=== PATIENT | female | born 1940 | race Caucasian/White ===

== ENCOUNTER 2016-12-29 18:51 | Emergency (ER) | payer MEDICARE, BC ==
[2016-12-29 19:01] VITALS: TEMP 97.3
[2016-12-29 19:45] LABS: BASOPHILS % (AUTO) 0 % (0-3); EOSINOPHILS % (AUTO) 0 % (0-9); HEMATOCRIT 41 % (35-47); MEAN CORPUSCULAR HGB CONC 34.5 gm/dl (32.0-36.0); MEAN CORPUSCULAR VOLUME 91 fL (81-99); MONOCYTES % (AUTO) 5.9 % (0-12); NEUTROPHILS % (AUTO) 86.8 % (37-80)
[2016-12-29 19:51] LABS: CALCIUM 9.3 mg/dl (8.5-10.1); POTASSIUM 3.4 mMol/L (3.5-5.1)
[2016-12-29 21:00] VITALS: BP 98/62; PULSE 89; RESP 16; O2SAT 94
== END 2016-12-29 21:11 | disposition home or self-care (01) | DRG 194 ==
LOC: ED 18:51
DX: J09.X2 Influenza due to identified novel influenza A virus with other respiratory manifestations (principal); C34.32 Malignant neoplasm of lower lobe, left bronchus or lung
CPT/HCPCS: 36415; 71010; 80048; 85025; 87804; 99283